=== PATIENT | female | born 1935 ===

== ENCOUNTER → 2021-05-20 | Outpatient (CLI) | payer OTHER ==
[~2021-05-20] VITALS: Ht 160 cm; Wt 64.9 kg
[~2021-05-20] MED LIST: ALLOPURINOL 10100 M3 PO; ASA81BEC PO; CELEBREX100 MG/1 C PO; COQ-10100 MG PO; CRANBERRY-PROB1 EACH PO; DULOXETINE HCL30 MG PO; EPIPEN0.3 MG/0.1 IM; FISH OIL 1,2001 EAC4 PO; FUROSEMIDE 20 M20 MG PO; MULTI VITAMIN1 EACH PO; NORVASC5 MG PO; PERCOCET 10-321 EAC1 PO; PROBIOTIC1 EAC7 PO; PROLIA60 MG/1 ML SUBQ; REPATHA SU140 MG/1 M SUBQ; TRAMADOL 50 MG50 MG PO; ZESTRIL20 MG PO
[2021-05-20 13:19] VITALS: BP 117/75
--- NOTE | 2021-05-20 13:36 | NUR ---
Pain Clinic Assessment: 1. History of Osteoarthritis: BACK History of Rheumatoid Arthritis: 2. Height: 5 ft. 3 in. 160.0 cm. Weight: 143.0 lb. oz. 64.864 kg. Patient's BMI: 25.3 3. Vital Signs: BP: 117/75 Pulse: 75 Resp: 16 Temp: 02 Sat: 97 ECG Mon: 4. Pain Intensity: 8 5. Fall Risk: Dizziness: Y Needs help standing or walking: N Fallen in the last 3 months: N Fall risk comments: 6. Patient on Blood Thinner: None 7. History of Hypertension: Y 8. Opioid Therapy greater than 6 weeks: Opiate Contract Signed: 9. Risk Assessment Tool Provided: 2 LOW RISK 10. Functional Assessment Tool: 11. Recreational Drug Use: Never Drug Type: Tobacco Use: Never Smoker Tobacco Type: Amount or Packs/day: How Many Years: Alcohol Use: Yes Frequency: Weekly Quant: 1
--- NOTE | 2021-05-21 08:16 | HPC ---
[facility] [place] [address] PAIN MANAGEMENT CONSULTATION Name: ALFONSO GIL Room #: REG LAI GibbsCeasarAnju.#: [id number] Admission: 05/20/21 Attend Phys: Jeerl Eng DO Discharge: Date of : 35 Report #: [id number] THIS REPORT FOR: cc: Khalif Bernard MD [facility] - family physician/PCP Jerel Eng DO ~ cc: Ashanti Hansen DATE OF SERVICE: 05/20/2021 REFERRING PHYSICIAN: Ashanti Hansen NP CHIEF COMPLAINT: Generalized body pain. HISTORY OF PRESENT ILLNESS: As you know, the patient is a very pleasant 85-year-old female who has had a longstanding history of chronic body wide pain. She localizes pain in the upper back between the shoulder blades, the low back and radiating down the right leg. She has sought treatment through multiple pain services including seeing Dr. Mullins who trialed stem cell injections as well as PRP. She has seen Dr. Luis Mishra and underwent what appears to be an SI joint injection with no benefit. She continued to experience generalized pain beginning between the scapulas all the way down the back and into the right leg. She sought evaluation through Neurosurgery to discuss surgical options as she has had a surgery done at the L4-5 level without benefit in the past. They had indicated at the time that she was not a surgical candidate and that she might consider a spinal cord stimulator. The patient was then referred on to our clinic to discuss that option of treatment. The patient reports today her pain is continuous, steady and constant. She describes the pain as burning, aching, crushing, stabbing and throbbing when describing pain, places pain at 10/10, daily average at 10/10, worst pain has been as 10/10. The patient states the pain is exacerbated with virtually every activity including walking on concrete. She states the pain is only improved with lying down, despite the fact that she is taking opioid medication on a consistent basis. She indicates that her oxycodone 5/325 provides about an hour worth of relief. She has been referred to our service to discuss interventional treatment options. PAST MEDICAL HISTORY: 1. Hyperlipidemia. 2. Osteoporosis. 3. History of breast cancer and radiation treatment. 4. Anxiety disorder. 5. Hypertension. PAST SURGICAL HISTORY: 1. Tonsillectomy. [address] [address] PAIN MANAGEMENT CONSULTATION Name: ALFONSO GIL Room #: REG JORIVenu Dickinson#: [id number] Admission: 05/20/21 Attend Phys: Jerel Eng DO Discharge: Date of : 35 Report #: [id number] 2. Tubal ligation. 3. Right ankle surgery. 4. Breast radiation. 5. Right L4-5 lumbar decompression. SOCIAL HISTORY: The patient denies tobacco use. Denies IV or illicit drug use. Admits to approximately 4 alcoholic beverages per week. She is a retired construction management assistant. She is not working. She has been out of work force for about 21 years. She is accompanied by a family friend present in room today. She is not in litigation in regards to pain. She is not receiving disability income. REVIEW OF SYSTEMS: Positive for weight change, decrease in appetite, fatigue, weakness, frequent and recurrent headaches, night sweats, earaches with drainage, hearing loss with tinnitus, palpitations, loss of appetite, changes in bowel movements, constipation, nocturia, changes in nail texture, lightheadedness, dizziness, numbness and tingling sensations, tremors nervousness, excessive urination, bleeding and bruising tendencies. All other review of systems negative per 12-point review of systems other than those listed in history of present illness. Pain impact score 47/70, severe interference of daily activities secondary to pain. ALLERGIES: PENICILLIN AND STATIN MEDICATIONS. CURRENT MEDICATIONS: Probiotic 1 tab per day, epinephrine intramuscular as directed, tramadol 50 mg every 6 hours, oxycodone 10/325 one tab every 6 hours, Repatha 140 mg subcutaneous every 2 weeks, Prolia 60 mg one-time injection every 6 months, furosemide 20 mg per day, aspirin 81 mg per day, omega-3 fish oil 1 tab per day, cranberry supplement 1 tab per day, allopurinol 100 mg 3 times a day, multivitamin 1 tab per day, celecoxib 100 mg b.i.d., amlodipine 5 mg once a day, lisinopril 20 mg once a day, coenzyme Q10 200 mg once a day. IMAGING: MRI lumbar spine obtained 02/25/2021 shows L1-2 with mild facet arthropathy. No central canal or neural foraminal stenosis. L2-3, stable retrolisthesis with a loss of disk height, broad-based left foraminal or extraforaminal disk protrusion remains mass effect upon the neural foramen and lateral recess contacting the L2 nerve root in the neural foramen. No significant central canal stenosis. L3-L4 shows annular disk bulge, facet arthropathy with ligamentum flavum hypertrophy, persistent bilateral moderate neural foraminal stenosis, mild central canal stenosis L4-L5, persistent loss of disk height, and anterolisthesis. Postsurgical changes seen posteriorly on the right laminectomy defect, new from previous evaluation. Posterior unroofing of the disk. A disk bulge seen with persistent marked right and mild left neural foraminal stenosis. Facet arthropathy is identified with right facet partially [facility] [address] [place] [address] PAIN MANAGEMENT CONSULTATION Name: ALFONSO GIL Room #: REG LAI .Anju.#: [id number] Admission: 05/20/21 Attend Phys: Jerel Eng DO Discharge: Date of : 35 Report #: [id number] resected. L5-S1 mild diffuse disk bulge, mild facet arthropathy. No significant central canal or neural foraminal stenosis. PQRS: The patient has known arthritic changes of the lumbar spine, bilateral hands, bilateral knees and ankles and hips. No rheumatoid arthritis. She is placing current pain score 5/10. She is not a fall risk, has not had a fall in last 3 months. She is not on blood thinners, but is treated for hypertension. She is on chronic opioids and has a low opioid addiction potential based on assessment tool. Pain impact is 47/70, severe interference of daily activities secondary to pain. PHYSICAL EXAMINATION: VITAL SIGNS: Blood pressure 117/75, pulse 75, respiratory rate 16 and unlabored. The patient is 97% on room air. Height 5 feet 3 inches tall, weight 143 pounds, BMI calculated 25.3. GENERAL: Well-developed, well-nourished, well-hydrated scoliotic and kyphotic 85-year-old female appearing stated age, pain is rated today 10/10. HEENT: Normocephalic, atraumatic. Pupils are round. She is wearing a mask in compliance with COVID-19 regulations and hospital policies. LUNGS: Appear clear. No wheeze, rhonchi or rales. CARDIOVASCULAR: Regular. No appreciable gallop, no rub. ABDOMEN: Soft, nontender. EXTREMITIES: Show no clubbing, no cyanosis, no edema. MUSCULOSKELETAL: Upper extremity strength equal and symmetrical, 5/5. Lower extremity strength equal and symmetrical, 5/5. Seated straight leg raising negative. Supine straight leg raising positive on the right. ZAYRA test is negative. Modified Gaenslen's positive for axial low back pain. Ankle clonus negative. Babinski is negative. There is some palpatory tenderness over the paraspinal musculature of lower lumbar spine. No spinous process tenderness. ASSESSMENT: 1. Symptomatic lumbar radiculopathy. 2. 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 3. Displacement of lumbar intervertebral disk with radiculopathy. 4. Lumbosacral spondylosis with radiculopathy. 5. Facet arthropathy of lumbar spine. 6. Lumbar degeneration. 7. Chronic intractable pain. PLAN: 1. Based on today's physical exam and history the patient has provided, the description the patient uses in regards to pain as well as location of symptoms and the descriptors she uses in regards to this pain, likely source of the patient's leg pain is a lumbar radiculopathy. This contributes to the pain in the low back radiating down the right leg. It is noted at the L4-L5 level she has marked neural foraminal stenosis that is unresolved post surgery. This does [address] [address] PAIN MANAGEMENT CONSULTATION Name: ALFONSO GIL Room #: REG CLI Alok#: [id number] Admission: 05/20/21 Attend Phys: Jerel Eng DO Discharge: Date of : 35 Report #: [id number] correlate with the patient's distribution of symptoms. We discussed the findings of this MRI from 02/2021 correlating her current symptoms to that findings. After that discussion, we discussed the treatment options to address this issue. The patient is also complaining of upper back pain due to her scoliosis and kyphosis that cannot be alleviated with the treatments for the lumbar radiculopathy for which the patient was referred today. We discussed thus with the patient. Here is the following information we provided the patient in regards to her lumbar radiculopathy. We discussed physical therapy, stretching exercises and core strengthening as a treatment approach. We discussed medication management, adding neuropathic medications such as amitriptyline, nortriptyline, Cymbalta, Lyrica or gabapentin. We discussed the possibility of having the patient undergo a lumbar epidural injection under fluoroscopic guidance. The patient reported that she was having these done in the past and she was receiving 2-3 months' worth of improvement in symptoms. When questioned once again about this issue, she states that she was receiving no benefit with these injections. We also discussed with the patient's spinal cord stimulator for which the patient was referred to our clinic by the Neurosurgery team and ultimately surgical decompression to address this issue. We also discussed with the patient an intrathecal pump as a treatment option, which could provide some analgesic benefit in regards to her radiculopathy, but would certainly assist in some of her generalized pain disorder. After reviewing the risks and benefits of all proposed treatment options, the patient chose to move forward with intrathecal pump. 2. The patient will contact nurse practitioner, Ashanti Hansen tomorrow at [facility]. They can discuss the intrathecal pump more completely. We discussed with the patient that we do not provide intrathecal pump therapy nor do we manage these pumps any longer. She would have to follow up with Dr. Bernard's office if she wants to look towards this treatment option. 3. We did discuss with the patient the effects of a spinal cord stimulator and how this would help with her buttock and right leg pain, but will provide no benefit for her upper back, mid back and her lower back. She states that she does not feel that the right lower extremity symptoms are the main pain generator for her that it is a combination of both the back and the right leg and that she did not wish to look towards a spinal cord stimulator understanding that that device will only provide improvement for her radicular symptoms related to the L5 level. We did provide the patient with the psychiatric evaluation paperwork if she does wish to avail herself of that treatment option. That way, she does not have to return to our clinic to begin the process. If she does avail herself of the psychiatric evaluation. She is to contact our clinic so we are aware of. 4. No medication changes made at today's visit. The patient will continue [address] [address] PAIN MANAGEMENT CONSULTATION Name: ALFONSO GIL Room #: REG [facility] Alok#: [id number] Admission: 05/20/21 Attend Phys: Jerel Eng DO Discharge: Date of : 35 Report #: [id number] current medical therapy as prior prescribed. 5. The patient will be following up with Neurosurgery in regards to the intrathecal pump therapy that was proposed by nurse practitioner, Ashanti Hansen and discussed by ourselves here at the clinic today. She feels that this would be her best option for treatment. I did advise the patient that the intrathecal pump may provide improvement in symptoms, but without decompression of the neural foramen at the L4-5 level, she may continue to experience radicular symptoms that cannot be resolved by intrathecal pump therapy. The patient will discuss this with nurse practitioner Tyrone at the followup visit. 6. We had difficulty with the patient today obtaining definitive information in regards to her outcome from treatments. At one point, the patient was indicating she was receiving 2-3 months' worth of improvement with epidural injections, but then when queried in this regard again, the patient indicates she was receiving no benefit whatsoever and that she had submitted to multiple injections without benefit. She states that she had had SI joint injections in the past, but cannot remember whether or not they provided benefit. She has had treatment with radiofrequency lesioning which provided no improvement in symptoms, although at one point in time she must have indicated she saw improvement that she would not have been able to move forward with radiofrequency lesioning without at least providing 70% improvement in symptoms with medial branch blocks. The patient also has had stem cell injections and PRP all of which according to the patient provided no benefit. Given the lack of improvement for her generalized pain, I do not feel a spinal cord stimulator will be able to provide her the global improvement in symptoms she is looking to achieve. We did discuss that her right leg symptoms would see improvement with a spinal cord stimulator, but globally she would not see much other improvement. She wishes to look towards the intrathecal pump and believes this might be the panacea of treatment. I did describe to the patient that this device could provide some improvement, but will not resolve pain entirely. I am hopeful she has a better idea and a more realistic idea of what the devices can actually provide. 7. We wish to thank nurse practitioner, Ashanti Hansen for the opportunity to see the patient in consultation. We will see the patient back in followup visit if requested. We are hopeful that some of the information provided to the patient today will give her a better understanding of the possible treatment options and that tolerable pain control is our goal. <ELECTRONICALLY SIGNED> By: Jerel Eng DO 05/21/21 [id number] Jerel Eng, DO /nt
== END ==
LOC: PAIN 08:08
PROVIDERS: ATTEND Anesthesiology Pain Medicine
DX: M47.26 Other spondylosis with radiculopathy, lumbar region (principal); M51.16 Intervertebral disc disorders with radiculopathy, lumbar region; M48.061 Spinal stenosis, lumbar region without neurogenic claudication; M47.27 Other spondylosis with radiculopathy, lumbosacral region; G89.29 Other chronic pain; I10 Essential (primary) hypertension; E78.5 Hyperlipidemia, unspecified; Z88.0 Allergy status to penicillin; Z88.8 Allergy status to other drugs, medicaments and biological substances; Z79.899 Other long term (current) drug therapy; Z79.82 Long term (current) use of aspirin